=== PATIENT | female | born 1960 | race Caucasian/White ===

== ENCOUNTER → 2016-08-15 | Outpatient (CLI) | payer OTHER, MEDICARE ==
[2016-08-15 15:56] LABS: BASO % 0.4 % (0.0-1.0); EOS # 0.4 K/mm3 (0.0-0.50); EOS % 3.8 % (0.0-3.0); LARGE UNSTAINED CELL # 0.1 K/mm3 (0.0-0.4); LARGE UNSTAINED CELL % 1.4 % (0.0-4.0); LYMPH # 3.3 K/mm3 (1.5-4.5); LYMPH % 36.7 % (24.0-44.0); MEAN CORPUSCULAR HEMOGLOBIN 25.2 pg (27.0-33.0); MEAN CORPUSCULAR HGB CONC 31.3 g/dl (32.0-36.5); MEAN CORPUSCULAR VOLUME 80.6 fl (80.0-96.0); MONO # 0.5 K/mm3 (0.0-0.8); MONO % 5.1 % (0.0-5.0); NEUTROPHILS # 4.7 K/mm3 (1.8-7.7); NEUTROPHILS % 52.5 % (36.0-66.0); PLATELET COUNT, AUTOMATED 339 k/mm3 (150-450); RED CELL DISTRIBUTION WIDTH 14.6 % (11.5-14.5)
[2016-08-15 16:25] LABS: ALBUMIN 3.6 GM/DL (3.2-5.2); ALBUMIN/GLOBULIN RATIO 1.03 (1.00-1.93); BILIRUBIN,TOTAL 0.3 MG/DL (0.2-1.0); CALCIUM LEVEL 8.6 MG/DL (8.5-10.1); CREATININE FOR GFR 1.04 MG/DL (0.55-1.02); GLOMERULAR FILTRATION RATE 57.9 (>51); POTASSIUM SERUM 3.3 MEQ/L (3.5-5.1); TOTAL PROTEIN 7.1 GM/DL (6.4-8.2)
== END ==
LOC: M LAB 14:52
PROVIDERS: ATTEND Family Medicine
DX: J44.1 Chronic obstructive pulmonary disease with (acute) exacerbation (principal); R53.83 Other fatigue; F32.4 Major depressive disorder, single episode, in partial remission; I10 Essential (primary) hypertension

== ENCOUNTER → 2016-08-26 | Outpatient (REF) | payer OTHER, MEDICARE ==
[2016-08-26 18:43] LABS: ANION GAP 5 MEQ/L (8-16); BLOOD UREA NITROGEN 10 MG/DL (7-18); CALCIUM LEVEL 9.5 MG/DL (8.5-10.1); CARBON DIOXIDE LEVEL 35 MEQ/L (21-32); CHLORIDE LEVEL 100 MEQ/L (98-107); CREATININE FOR GFR 0.91 MG/DL (0.55-1.02); GLOMERULAR FILTRATION RATE > 60.0 (>51); GLUCOSE, FASTING 75 MG/DL (70-105); POTASSIUM SERUM 3.4 MEQ/L (3.5-5.1); SODIUM LEVEL 140 MEQ/L (136-145)
== END ==
LOC: M SFHCPLAZ 14:21
PROVIDERS: ATTEND Physician Assistant
DX: E87.6 Hypokalemia (principal)

== ENCOUNTER → 2016-10-26 | Outpatient (CLI) | payer OTHER, MEDICARE | LOC: M LAB 16:21 | PROVIDERS: ATTEND Physician Assistant | DX: E55.9 Vitamin D deficiency, unspecified (principal) ==

== ENCOUNTER → 2017-02-05 | Outpatient (CLI) | payer OTHER, MEDICARE ==
--- NOTE | 2017-02-05 15:03 | REP ---
MR BRAIN WITHOUT CONTRAST: HISTORY: Headache. There are no areas of abnormal signal intensity in the brain parenchyma. There is no intraparenchymal hemorrhage, infarct, mass, or midline shift. The ventricular system is normal in appearance. There is no extracerebral collection. A 4 mm focus of isointense signal intensity on T2-weighted images is present in the right cerebellopontine angle cistern. A 16 mm cystic lesion is present the spheno-occipital bone. The sinuses are clear. IMPRESSION: 1. There is a 4 mm focus of isointense signal intensity in the right cerebellopontine angle cistern. This may represent a very small acoustic neuroma or partial volume averaging with the right temporal lobe. Contrast enhanced MR of the internal auditory canals is recommended for further evaluation. 2. There is a 16 mm cystic structure in the spheno-occipital bone. This appears benign, however, contrast enhanced MR is recommended for further evaluation. Signed by Hector Mitchell MD 02/05/2017 03:08 P
== END ==
LOC: M PLARAD 13:29
PROVIDERS: ATTEND Family Medicine
DX: G44.52 New daily persistent headache (NDPH) (principal)

== ENCOUNTER → 2017-02-10 | Outpatient (CLI) | payer OTHER, MEDICARE ==
[2017-02-10 14:14] LABS: BASO % 0.4 % (0.0-1.0); EOS # 0.3 10^3/uL (0.0-0.50); EOS % 3.1 % (0.0-3.0); IMMATURE GRANULOCYTE % 0.3 % (0-0); LYMPH # 4.2 10^3/uL (1.5-4.5); LYMPH % 40.1 % (24.0-44.0); MEAN CORPUSCULAR HEMOGLOBIN 24.5 pg (27.0-33.0); MEAN CORPUSCULAR HGB CONC 31.7 g/dl (32.0-36.5); MEAN CORPUSCULAR VOLUME 77.4 fl (80.0-96.0); MONO # 0.6 10^3/uL (0.0-0.8); MONO % 5.5 % (0.0-5.0); NEUTROPHILS # 5.3 10^3/uL (1.8-7.7); NEUTROPHILS % 50.6 % (36.0-66.0); PLATELET COUNT, AUTOMATED 330 10^3/uL (150-450); RED CELL DISTRIBUTION WIDTH 17.3 % (11.5-14.5); WHITE BLOOD COUNT 10.4 10^3/uL (4.0-10.0)
[2017-02-10 14:51] LABS: ERYTHROCYTE SEDIMENTATION RATE 24 mm/hr (0-30)
== END ==
LOC: M LAB 13:23
PROVIDERS: ATTEND Family Medicine
DX: G44.52 New daily persistent headache (NDPH) (principal); Z11.59 Encounter for screening for other viral diseases

== ENCOUNTER → 2017-02-17 | Outpatient (CLI) | payer OTHER, MEDICARE ==
[~2017-02-17] MED LIST: PROHANCE 279.3MG/ML 15ML VIAL (A9576) As Ordered ONE
--- NOTE | 2017-02-17 14:34 | REP ---
MR BRAIN WITH CONTRAST: HISTORY: Headache. CONTRAST: ProHance 16 mL. COMPARISON: 02/05/2017. There is no cerebellopontine angle mass. The inner ear structures are normal in appearance. There is no abnormal enhancement. The middle ear cavities and mastoid air cells are clear. A 1.7 cm cystic structure is present in the spheno-occipital bone. There is no enhancement with contrast. This most likely represents an endochondroma. IMPRESSION: There is no cerebellopontine angle mass. Signed by Hector Mitchell MD 02/17/2017 02:44 P
== END ==
LOC: M RAD 10:17
PROVIDERS: ATTEND Physician Assistant
DX: G44.52 New daily persistent headache (NDPH) (principal); R90.89 Other abnormal findings on diagnostic imaging of central nervous system
CPT/HCPCS: 70552; A9576

== ENCOUNTER → 2018-04-01 | Outpatient (CLI) | payer OTHER, MEDICARE | LOC: M LAB 14:38 | DX: M48.061 Spinal stenosis, lumbar region without neurogenic claudication (principal) | CPT/HCPCS: 93005 ==

== ENCOUNTER 2018-06-18 18:32 | Emergency (ER) | payer OTHER, MEDICARE ==
[2018-06-18] MEDS ORDERED: EPINEPHrine 1MG/10ML SYRINGE 1.5IN ONE (18:33)
[2018-06-18] MEDS ORDERED: SODIUM BICARBONATE 8.4% INJ 50 ML SYRINGE ONE (18:33)
[2018-06-18 18:54] LABS: HEMATOCRIT 43.9 % (36.0-47.0); HEMOGLOBIN 12.4 g/dl (12.0-15.5); MEAN CORPUSCULAR HEMOGLOBIN 25.4 pg (27.0-33.0); MEAN CORPUSCULAR HGB CONC 28.2 g/dl (32.0-36.5); PLATELET COUNT, AUTOMATED 311 10^3/uL (150-450); RED BLOOD COUNT 4.88 10^6/uL (4.00-5.40)
[2018-06-18 18:55] LABS: WHITE BLOOD COUNT 10.8 10^3/uL (4.0-10.0)
[2018-06-18 19:03] LABS: ABG BASE EXCESS -26.5 (-2.0-2.0); ABG HCO3 11.4 MEQ/L (22.0-26.0); ABG PARTIAL PRESSURE O2 115.4 mmHg (75.0-100.0); ABG STANDARD HCO3 6.3 MEQ/L (22.0-26.0); ABG TOTAL CO2 14.4 MEQ/L (23.0-31.0)
[2018-06-18 19:07] LABS: ABG PARTIAL PRESSURE CO2 98.8 mmHg (35.0-45.0); ABG pH (ARTERIAL) 6.679 UNITS (7.350-7.450)
[2018-06-18] MEDS ORDERED: SODIUM BICARBONATE 8.4% INJ 50 ML SYRINGE IV STA (19:10)
[2018-06-18] MEDS ORDERED: METAL LOCK LOOP XX ONE (19:14)
[2018-06-18 19:16] LABS: INR 1.47; PROTHROMBIN TIME 18.1 SECONDS (12.1-14.4)
[2018-06-18 19:17] LABS: ALBUMIN 3.3 GM/DL (3.2-5.2); ALT/SGPT 175 U/L (12-78); AMYLASE 19 U/L (25-115); BILIRUBIN,DIRECT < 0.1 MG/DL (0.0-0.2); BILIRUBIN,TOTAL 0.3 MG/DL (0.2-1.0); BLOOD UREA NITROGEN 8 MG/DL (7-18); CALCIUM LEVEL 9.6 MG/DL (8.8-10.2); CARBON DIOXIDE LEVEL 15 MEQ/L (21-32); CHLORIDE LEVEL 100 MEQ/L (98-107); CPK CREATINE PHOSPHOKINASE 318 U/L (26-192); CREATININE FOR GFR 1.36 MG/DL (0.55-1.30); GLOMERULAR FILTRATION RATE 42.2 (>45); GLUCOSE, FASTING 261 MG/DL (70-100); LIPASE 145 U/L (73-393); MAGNESIUM LEVEL 3.3 MG/DL (1.8-2.4); MB/CK RELATIVE INDEX 1.95 (< OR =4); PARTIAL THROMBOPLASTIN TIME 79.4 SECONDS (25.4-37.6); PHOSPHORUS LEVEL 10.8 MG/DL (2.5-4.9); POTASSIUM SERUM 4.5 MEQ/L (3.5-5.1); SODIUM LEVEL 139 MEQ/L (136-145); TOTAL PROTEIN 6.8 GM/DL (6.4-8.2); TROPONIN I 0.14 NG/ML (< 0.10)
[2018-06-18] MEDS ORDERED: FENO145T13 PO (19:19)
[2018-06-18] MEDS ORDERED: AMLO5TAB6 PO (19:19)
[2018-06-18] MEDS ORDERED: CLOP75TA2 PO (19:19)
[2018-06-18] MEDS ORDERED: IVER1TAB (19:19)
[2018-06-18] MEDS ORDERED: ZOLP10TA2 PO (19:19)
[2018-06-18] MEDS ORDERED: HYDR50TA70 PO (19:19)
[2018-06-18] MEDS ORDERED: BUPR-335 PO (19:19)
[2018-06-18] MEDS ORDERED: ATOR1TAB19 PO (19:19)
[2018-06-18] MEDS ORDERED: VENL150C43 PO (19:19)
[2018-06-18] MEDS ORDERED: FURO40TA2 PO (19:19)
[2018-06-18] MEDS ORDERED: HYDR50TA30 (19:19)
[2018-06-18] MEDS ORDERED: TIZANIDINE (19:19)
[2018-06-18] MEDS ORDERED: METH10TA2 PO (19:19)
[2018-06-18] MEDS ORDERED: OMEP40CA2 PO (19:19)
[2018-06-18] MEDS ORDERED: TIZA4CAP PO (19:19)
[2018-06-18] MEDS ORDERED: BISO5TAB5 PO (19:19)
[2018-06-18] MEDS ORDERED: BUSP30TA PO (19:19)
[2018-06-18 19:22] LABS: ATYPICAL LYMPH 1 % (0-5); BASOPHILS 1 % (0-4); EOSINOPHILS 2 % (0-5); HYPOCHROMASIA 1+; LYMPHOCYTES 67 % (16-52); METAMYELOCYTES 3 % (0-0); MONOCYTES 5 % (0-8); MYELOCYTES 1 % (0-0); NEUTROPHILS 16 % (35-75); PLATELET ESTIMATE NORMAL (NORMAL)
[2018-06-18 19:56] VITALS: BP 41/25
[2018-06-18] MEDS ORDERED: COMMENT (20:00)
[2018-06-18 20:02] LABS: D-DIMER QUANT > 4000 ng/ml (<500)
--- NOTE | 2018-06-19 09:51 | REP ---
PORTABLE AP SUPINE CHEST: 06/18/2018. CLINICAL HISTORY: Hypothermia. COMPARISON: 04/18/2016, 09/25/2015 chest x-rays. FINDINGS: There is an endotracheal tube with its tip 2.5 cm from the obey. A nasogastric tube is seen coursing into the stomach, its tip well off the field in the left upper quadrant. Lungs somewhat hypoinflated. There are underlying interstitial chronic changes, but superimposed peribronchial thickening and patchy/streaky densities perihilar region on the left compared to the right. This may reflect some superimposed infiltrate or atelectasis with bronchitis or bronchiectatic change. No definite effusion. Heart size not enlarged for this degree of inflation and portable technique. The aorta is normal for age. No abnormal widening of the mediastinum. Bones intact. The gastric air bubble is distended in that left upper quadrant. IMPRESSION: 1. Endotracheal tube about 2.5 cm above the obey and nasogastric tube well into the gastric fundus, tip off the field in the left upper quadrant. 2. There is underlying fibrosis with increased markings perihilar region, left greater than right, with peribronchial thickening and some streaky densities that may reflect bronchitis or bronchiectasis. Patchy infiltrate or atelectasis superimposed, no effusion. No sonia edema. No gross cardiomegaly. Electronically Signed by Colby Boogie MD 06/19/2018 11:31 A
--- NOTE | 2018-06-19 16:35 | ECGEPIP ---
Stationary ECG Study [facility] - ED Test Date: 2018-06-18 Pat Name: YULY GUZMAN Department: Room: - Gender: F [employer] Operator: [facility] : 1960 Requested By: MARYCARMEN Aaron Order Number: [id number] Reading MD: Sol Jamil Measurements Intervals Sherman Rate: 81 P: 66 OH: 193 QRS: 189 QRSD: 156 T: -34 QT: 452 QTc: 527 Interpretive Statements SINUS RHYTHM RIGHT BUNDLE BRANCH BLOCK LEFT POSTERIOR FASCICULAR BLOCK POSSIBLE ANTERIOR MYOCARDIAL INFARCTION, PROBABLY OLD SIMILAR 04/01/18 Electronically Signed On 06-19-2018 16:35:09 EST by Sol Jamil
--- NOTE | 2018-06-20 20:09 | IPN ---
DATE: 06/18/2018 NOTE: I was asked by Dr. Harris to emergency evaluate Ms. Abby Adams for acute cardiopulmonary arrest. Ms. Mora is a 58-year-old white female who, according to her , started feeling unwell with a likely viral illness (swab came back positive for respiratory syncytial virus (RSV)). She had multiple underlying medical problems including hypertension, fibromyalgia, obesity, chronic obstructive pulmonary disease (COPD), degenerative disc disease (DJD), depression, chronic pain, myofascial pain syndrome/chronic narcotic usage, and ongoing tobacco usage. Her tried to get her to go to be seen on Wednesday but she had declined. Today, he again tried to have her evaluated and she agreed. However, she was not able to get out of bed and when he returned to her bedside her breathing was shallow and then it stopped. He started cardiopulmonary resuscitation (CPR) and gave rescue breaths and summoned emergency medical services (EMS). He felt it took about 15 minutes before EMS was there. She was in pulseless electrical activity (PEA) when they arrived. She was given epinephrine en route. I believe it was about 20 minutes before they arrived in the emergency department where she was again given epinephrine and a pulse was established. All total she received CPR for about 45 minutes. After arrival, the daughter's initial discussions with Dr. Harris included that she had been an out of hospital DO NOT RESUSCITATE. Upon my arrival, they confirmed that she was an out of hospital DO NOT RESUSCITATE. Her daughter stated that her mother had obtained a type of documentation that was notarized that she was DO NOT RESUSCITATE/DO NOT INTUBATE. However, she was now resuscitated. Her examination did show pupils that were 5 mm and fixed, no spontaneous movements and was otherwise unremarkable except for absent bowel sounds. Her blood pressure was in the 80s over 40s. Her arterial blood gas following resuscitation was 6.68/99/15 with a base excess of -26.5. In discussing this further with her family, they decided they did not want to escalate her current level of care, specifically meaning no intervention with vasopressors, hypothermia protocol, or other. They had further discussions and decided to withdraw care which seemed to be appropriate given her previously expressed wishes and her prolonged resuscitative period. We completed the Medical Orders for Life-Sustaining Treatment (MOLST) form and she later in the emergency department. She was never technically admitted to the hospital. Total time 45 minutes not including procedure time. RANDY
== END 2018-06-19 02:56 | disposition expired ==
LOC: M ED 18:32 → EDBD 18:32 → CANBEDREQ 22:20 → M ED 06-19 02:56
DX: I46.9 Cardiac arrest, cause unspecified (principal); I45.10 Unspecified right bundle-branch block; I44.5 Left posterior fascicular block; J44.9 Chronic obstructive pulmonary disease, unspecified; F32.9 Major depressive disorder, single episode, unspecified; F41.9 Anxiety disorder, unspecified; G89.29 Other chronic pain; Z87.891 Personal history of nicotine dependence; Z79.899 Other long term (current) drug therapy; Z88.6 Allergy status to analgesic agent